=== PATIENT | male | born 1960 | race African-American/Black ===

== ENCOUNTER 2016-06-23 07:32 | Day surgery (SDC) | payer BC ==
[~2016-06-23 07:32] MED LIST: PROPOFOL INJ 200 MG/20 ML VIAL IV ONE
[2016-06-23 09:06] VITALS: BP 135/83
--- NOTE | 2016-06-23 12:51 | Operative Report ---
Operative Report DATE OF SURGERY: 06/23/16 Operative Report: The risks, benefits and alternatives of the procedure including risks of bleeding, perforation requiring surgery are explained to the patient detail and informed consents obtained. Patient is placed in a left lateral decubital position. Patient is taken back to the endoscopy suite. Timeout is called. Propofol medication is administered. A rectal examination was done which did not reveal any masses, tears or fissures. An Olympus video scope was inserted into the patient's rectum. The scope was then gradually advanced all the way to the cecum. The cecum was identified by the usual anatomical landmarks of the ileocecal valve and the appendiceal orifice, photo documentations obtained. Prep is good. The scope was then sequentially pulled back via the various segments of the colon including the ascending colon, hepatic flexure, transverse colon, splenic flexure, descending colon and finally into the rectosigmoid portions of the colon. Retroflexion maneuvers performed. PREOPERATIVE DIAGNOSIS: Blood in stool POSTOPERATIVE DIAGNOSIS: Internal hemorrhoids. Sessile sigmoid polyp removed via biopsy forceps OPERATION: Colonoscopy with biopsy ANESTHESIA: LMAC TISSUE REMOVED OR ALTERED: Polyp is retrieved COMPLICATIONS: None. ESTIMATED BLOOD LOSS: none. INTRAOPERATIVE FINDINGS: As noted above. No AVMs, diverticulosis noted. Internal hemorrhoids. PROCEDURE: Patient tolerated the procedure well. No immediate postprocedure complications are noted. Patient is discharged in good condition. Discharge date 06/23/2016. Discharge diet: Regular. Discharge activity: Regular. Patient does have a 2-3 week follow-up to discuss findings. Surveillance colonoscopy in 3-5 years. We'll await on biopsies. Patient is instructed to call the office or proceed to the emergency room after any further problems or questions
== END 2016-06-23 09:07 | disposition home or self-care (01) ==
LOC: END 07:32
PROVIDERS: ATTEND Internal Medicine Gastroenterology
PROC: 0DBP8ZX Excision of Rectum, Via Natural or Artificial Opening Endoscopic, Diagnostic (ICD-10-PCS; 2016-06-23)
PROC: 0DBM8ZX Excision of Descending Colon, Via Natural or Artificial Opening Endoscopic, Diagnostic (ICD-10-PCS; principal; 2016-06-23 08:30)
DX: K92.1 Melena (principal); K64.8 Other hemorrhoids; D12.5 Benign neoplasm of sigmoid colon
CPT/HCPCS: 45380; 88305 ×2; J2704; 810